=== PATIENT | male | born 1990 | race Caucasian/White ===

== ENCOUNTER 2017-05-07 01:30 | Emergency (ER) | payer OTHER ==
[~2017-05-07] VITALS: Wt 77.5 kg
[~2017-05-07 01:30] MED LIST: ERGO500014 PO; LORA-441 PO
[2017-05-07 01:35] VITALS: Wt 77.5 kg
[2017-05-07] MEDS ORDERED: ACETAMINOPHEN 325 MG TAB PO ONE (02:30)
--- NOTE | 2017-05-07 02:34 | RADRPT ---
PROCEDURE: CT BRAIN WITHOUT CONTRAST CLINICAL INDICATION: 26-year-old male with headaches. TECHNIQUE: The study was performed utilizing a GE An[employer]iva Systemspeed VCT 64-slice CT scanner. Direct axia l sections were obtained from the foramen magnum to the vertex without the use of intravenous contra st material. Sagittal and coronal reformations were obtained. One or more the following dose reduct ion techniques were utilized: automated exposure control, adjustment of the mA and/or kV according t o patient's size or use of iterative reconstruction technique. The images were viewed on a PACS [employer]. CTD/vol = 45.0 mGy; Total Exam DLP = 720.2 mGy-cm. COMPARISON: CT brain August 21, 2016; CT brain July 15, 2015. FINDINGS: There is again identified a focal right superior temporal encephalomalacia where the patient had a p rior hemorrhage. The ventricles have a normal size, shape and position. There is no evidence for m ass effect or midline shift. There is no evidence for acute intra or extra-axial blood. The bony ca lvarium is intact. The partially visualized paranasal sinuses and mastoid air cells are without sign ificant abnormal soft tissue. IMPRESSION: 1. There has been no marked interval change compared to the patient's prior CT scan from August [id number]. 2. Focal right superior temporal encephalomalacia corresponding to prior hemorrhage identified on t he patient's CT scan from July 15, 2015. .Luis Miguel Cristobal MD, Date Time Electronically viewed and signed by .Luis Miguel Cristobal MD, on 05/07/2017 02:34 .M/
[2017-05-07 03:49] VITALS: BP 125/70; PULSE 53; RESP 16
--- NOTE | 2017-05-07 04:22 | ERD ---
ER Documentation Chief Complaint Date/Time DATE: 05/07/17 TIME: 04:20 Chief Complaint FERGUSON started at 2200 after having argument with general supervisor, [facility] in 2014 HPI Patient is a 26-year-old male with a history of anxiety and previous intracranial hemorrhage who presents with a "migraine". The patient says that he has a history of intracranial hemorrhage in the past and that this headache feels similar to that headache. He said the pain comes and goes. It started after he had an argument with his boss at 10 PM. He has had no treatment as of yet. Upon review of old medical records this is the patient's fifth visit to the ER since 2014. He does not currently have a primary doctor. ROS All systems reviewed and are negative except as per history of present illness. Medications Home Meds Active Scripts Lorazepam* (Ativan*) 0.5 Mg Tablet, 0.5 MG PO Q8H Y for ANXIETY, #10 TAB Prov:MALI ROBLES 08/22/16 Lorazepam* (Ativan*) 0.5 Mg Tablet, 0.5 MG PO Q8H Y for ANXIETY, #20 TAB Prov:MALI ROBLES 12/16/15 Reported Medications Ergocalciferol* (Drisdol* (Vitamin D2)) 50,000 Unit Capsule, 86642 UNIT PO Q7D, CAP 12/16/15 Allergies Allergies: Coded Allergies: No Known Allergy (Unverified , 12/16/15) PMhx/Soc History of Surgery: Yes (JUL 2015 BRAIN SX) Anesthesia Reaction: No Hx Neurological Disorder: No Hx Respiratory Disorders: No Hx Cardiac Disorders: No (blood clot in leg) Hx Psychiatric Problems: No Hx Miscellaneous Medical Probl: No (JUL 2015 BRAIN BLEED, ADHD) Hx Alcohol Use: Yes (occ) Hx Substance Use: No Hx Tobacco Use: No Smoking Status: Never smoker FmHx Family History: diabetes Physical Exam Vitals Vital Signs Date Time Temp Pulse Resp B/P Pulse Ox O2 Delivery O2 Flow Rate FiO2 05/07/17 03:49 53 16 125/70 96 Room Air 05/07/17 01:35 97.1 76 20 134/81 97 Physical Exam Const: No acute distress Head: Atraumatic Eyes: Normal Conjunctiva ENT: Normal External Ears, Nose and Mouth. Neck: Full range of motion..~ No meningismus. Resp: Clear to auscultation bilaterally Cardio: Regular rate and rhythm, no murmurs Abd: Soft, non tender, non distended. Normal bowel sounds Skin: No petechiae or rashes Back: No midline or flank tenderness Ext: No cyanosis, or edema Neur: Awake and alert, Cranial nerves II through XII are intact, strength is 5 out of 5 in all 4 extremities, no slurred speech Psych: Normal Mood and Affect Results 24 hrs Current Medications Medications (Trade) Dose Ordered Sig/Steve Route PRN Reason Start Time Stop Time Status Last Admin Dose Admin Acetaminophen (Tylenol Tab) 650 mg ONCE ONCE PO 05/07/17 02:30 05/07/17 02:31 DC 05/07/17 02:14 Procedures/MDM CT brain shows no intrarenal hemorrhage or mass per radiology. Patient is a 26-year-old male with previous intracranial hemorrhage who presents with headache. Given that he said this feels similar to previous headache I did do a CT scan of the brain which was negative for bleed or mass. His neurologic exam is normal. I doubt subarachnoid hemorrhage. I do not think the patient requires a lumbar puncture. I believe outpatient management is appropriate but the patient will need close follow-up with a primary doctor at the local clinics for reevaluation. He can return sooner for any worsening symptoms. The patient understands the plan and is okay for discharge at this time. Departure Diagnosis: Primary Impression: Headache Headache type: unspecified Headache chronicity pattern: acute headache Intractability: not intractable Qualified Code: R51 - Acute nonintractable headache, unspecified headache type Condition: Fair Patient Instructions: Self-Care for Headaches Referrals: [facility] (PCP) Additional Instructions: Call your primary care doctor TOMORROW for an appointment during the next 1 WEEK.Tell the secretary board of commissioners that you were referred from this facility.See the doctor sooner or return here if your condition worsens before your appointment time. FILIBERTO GIMENEZ MD May 07, 2017 04:22
== END 2017-05-07 03:50 | disposition home or self-care (01) ==
LOC: E/R 01:30
DX: R51 Headache (principal)
CPT/HCPCS: 70450; Z7502; Z7610

== ENCOUNTER 2017-05-22 15:52 | Emergency (ER) | payer OTHER ==
[~2017-05-22] VITALS: Ht 167.6 cm; Wt 77.0 kg
[2017-05-22 16:12] VITALS: Ht 167.6 cm; Wt 77.0 kg
[2017-05-22] MEDS ORDERED: CETI10CA PO (17:01)
[2017-05-22] MEDS ORDERED: BEN25 PO (17:01)
[2017-05-22 17:13] VITALS: BP 122/70; PULSE 68; RESP 20; TEMP 98.2
--- NOTE | 2017-05-22 17:20 | ERD ---
ER Documentation Chief Complaint Date/Time DATE: 05/22/17 TIME: 17:18 Chief Complaint GENERALIZE BODY RASH X1 DAY HPI 26-year-old male comes in with a generalized rash that has been intermittent for the past 2 days. He states that it started after going to a baseball game. He denies any new foods, medications, lotions or creams. He states last week he had vomiting, nausea, diarrhea and abdominal pain has resolved. ROS All systems reviewed and are negative except as per history of present illness. Medications Home Meds Active Scripts Cetirizine Hcl* (Zyrtec*) 10 Mg Capsule, 10 MG PO DAILY, #20 TAB.CHEW Prov:WASHINGTON ARITA PA-C 05/22/17 Diphenhydramine Hcl* (Benadryl*) 25 Mg Cap, 25 MG PO Q6, #30 CAP Prov:WASHINGTON ARITA PA-C 05/22/17 Lorazepam* (Ativan*) 0.5 Mg Tablet, 0.5 MG PO Q8H Y for ANXIETY, #10 TAB Prov:MALI ROBLES 08/22/16 Lorazepam* (Ativan*) 0.5 Mg Tablet, 0.5 MG PO Q8H Y for ANXIETY, #20 TAB Prov:MALI ROBLES STommy 12/16/15 Reported Medications Ergocalciferol* (Drisdol* (Vitamin D2)) 50,000 Unit Capsule, 52529 UNIT PO Q7D, CAP 12/16/15 Allergies Allergies: Coded Allergies: No Known Allergy (Unverified , 12/16/15) PMhx/Soc History of Surgery: Yes (JUL 2015 BRAIN SX) Anesthesia Reaction: No Hx Neurological Disorder: No Hx Respiratory Disorders: No Hx Cardiac Disorders: No (blood clot in leg) Hx Psychiatric Problems: No Hx Miscellaneous Medical Probl: No (JUL 2015 BRAIN BLEED, ADHD) Hx Alcohol Use: No Hx Substance Use: No Hx Tobacco Use: No Physical Exam Vitals Vital Signs Date Time Temp Pulse Resp B/P Pulse Ox O2 Delivery O2 Flow Rate FiO2 05/22/17 17:13 98.2 68 20 122/70 98 Room Air 05/22/17 16:12 98.2 64 18 127/66 98 Physical Exam General: Well-developed, well-nourished. The patient appears in no acute distress. HEENT: Head is normocephalic, atraumatic. No scleral icterus. Neck: Supple. Nontender. Lungs: Clear to auscultation. Normal air movement. Heart: Regular rate and rhythm. S1 and S2 are normal. No murmurs, gallops, or rubs. Abdomen: Soft, nontender, nondistended. Bowel sounds are normoactive. Extremities: No clubbing or cyanosis. Normal pulses. Moving extremities x 4. No weakness. Neurologic: Alert and oriented 3. No focal deficits. Skin: Macular rash that is generalized, blanchable. No vesicles. Procedures/MDM 26-year-old male presents emergency department generalized rash, patient's symptoms are most consistent with a dermatitis nonspecific. Patient does not show any signs of anaphylaxis, respiratory condition with this, meningitis, encephalitis, Connor Oscar's, bleeding disorder. Patient reports that it started 2 days ago has been intermittent coming and going. He will be advised to take Benadryl as needed for symptom, as well as Zyrtec. Departure Diagnosis: Primary Impression: Rash Condition: Good Patient Instructions: Allergic Reaction, Other (General) WASHINGTON ARITA PA-C May 22, 2017 17:20
== END 2017-05-22 16:54 | disposition home or self-care (01) ==
LOC: FTE 15:52
DX: R21 Rash and other nonspecific skin eruption (principal)
CPT/HCPCS: 99283

== ENCOUNTER 2017-06-11 19:55 | Emergency (ER) | END 2017-06-11 21:56 | disposition home or self-care (01) | DX: R10.84 Generalized abdominal pain (principal); R11.10 Vomiting, unspecified | CPT/HCPCS: 36415; 74176; 80053; 81001; 83690; 85025; 96374; 96375; J1885; J2405; J7030; Z7502 ==

== ENCOUNTER 2017-06-15 21:20 | Emergency (ER) | payer OTHER ==
[~2017-06-15] VITALS: Ht 177.8 cm; Wt 75.0 kg
[~2017-06-15 21:20] MED LIST changes: +ACET325T33 PO; +BEN25 PO; +CETI10CA PO; +ONDA4TAB14 PO
[2017-06-15 21:26] VITALS: Ht 177.8 cm; Wt 75.0 kg
--- NOTE | 2017-06-15 23:58 | ERD ---
ER Documentation Chief Complaint Date/Time DATE: 06/15/17 TIME: 23:56 Chief Complaint lower abd pain x 3 days HPI 26-year-old male complaining of lower abdominal pain 3 days. The pain is sharp , comes and goes, worse when he is walking. Patient reports that he had not had a bowel movement for last 3 days. Feels nauseous, but had not did. He was seen here 4 days ago for similar abdominal pain and vomiting, and received CT scan. He was told that everything was normal, he probably had a viral illness. Denies fever or chills. ROS All systems reviewed and are negative except as per history of present illness. Medications Home Meds Active Scripts Acetaminophen* (Tylenol*) 325 Mg Tablet, 2 TAB PO Q6 Y for PAIN AND OR ELEVATED TEMP, #20 TAB Prov:JESSICA KILLIAN PA-C 06/11/17 Ondansetron (Ondansetron Odt) 4 Mg Tab.rapdis, 4 MG PO Q6H Y for NAUSEA AND/OR VOMITING, #10 TAB Prov:JESSICA KILLIAN PA-C 06/11/17 Cetirizine Hcl* (Zyrtec*) 10 Mg Capsule, 10 MG PO DAILY, #20 TAB.CHEW Prov:WASHINGTON ARITA PA-C 05/22/17 Diphenhydramine Hcl* (Benadryl*) 25 Mg Cap, 25 MG PO Q6, #30 CAP Prov:WASHINGTON ARITA PA-C 05/22/17 Lorazepam* (Ativan*) 0.5 Mg Tablet, 0.5 MG PO Q8H Y for ANXIETY, #10 TAB Prov:MALI ROBLES 08/22/16 Lorazepam* (Ativan*) 0.5 Mg Tablet, 0.5 MG PO Q8H Y for ANXIETY, #20 TAB Prov:MALI ROBLES 12/16/15 Reported Medications Ergocalciferol* (Drisdol* (Vitamin D2)) 50,000 Unit Capsule, 95104 UNIT PO Q7D, CAP 12/16/15 Allergies Allergies: Coded Allergies: No Known Allergy (Unverified , 06/11/17) PMhx/Soc History of Surgery: Yes (JUL 2015 BRAIN SX) Anesthesia Reaction: No Hx Neurological Disorder: No Hx Respiratory Disorders: No Hx Cardiac Disorders: No Hx Psychiatric Problems: No Hx Miscellaneous Medical Probl: No (JUL 2015 BRAIN BLEED, ADHD) Hx Alcohol Use: No Hx Substance Use: No Hx Tobacco Use: No Smoking Status: Never smoker Physical Exam Vitals Vital Signs Date Time Temp Pulse Resp B/P Pulse Ox O2 Delivery O2 Flow Rate FiO2 06/15/17 21:26 97.8 71 20 127/70 98 Physical Exam General: Well-developed, well-nourished, conscious and coherent, in no distress Skin: Warm and dry without rash, good texture and turgor Head: Normocephalic without evidence of trauma Eyes: Sclera and conjunctivae normal; pupils equal, round, and reactive to light; extraocular movements are intact Chest: Normal AP diameter. Good expansion without retractions. Nontender. Lungs are clear to auscultate bilaterally with good tidal volume Heart: Regular rate and rhythm. No murmur, rub, or gallops heard Abdomen: Soft, diffuse tenderness without masses, guarding, or rebound. Bowel sounds are active. No hepatosplenomegaly Back: Without spinal or CVA tenderness Pelvis: Nontender to palpation and stable to compression Extremities: Full range of motion. Good strength bilaterally. No clubbing, cyanosis, or edema. Peripheral pulses are intact. Sensation intact Neuro: Alert and oriented 4, GCS 15. Cranial nerves grossly intact. Motor and sensory exams nonfocal. Moves all extremities. Speech clear. Gait normal Results 24 hrs Laboratory Tests Test 06/16/17 00:11 Bedside Urine pH (LAB) 6.0 Bedside Urine Protein (LAB) Negative Bedside Urine Glucose (UA) Negative Bedside Urine Ketones (LAB) Negative Bedside Urine Blood Negative Bedside Urine Nitrite (LAB) Negative Bedside Urine Leukocyte Esterase (L Negative Current Medications Medications (Trade) Dose Ordered Sig/Steve Route PRN Reason Start Time Stop Time Status Last Admin Dose Admin Magnesium Citrate (Citroma) 300 ml ONCE ONCE PO 06/16/17 00:30 06/16/17 00:31 DC PROCEDURE: XR Abdomen. CLINICAL INDICATION: Constipation TECHNIQUE: AP abdomen x-ray. COMPARISON: CT and 06/11/2017 FINDINGS: The bowel gas pattern is normal. There is no evidence of free air or obstruction. There are no abnormal calcifications overlying the urinary tracts. The osseus structures are unremarkable. Mild fecal retention within the colon. Mild levoscoliosis of the lumbar spine. IMPRESSION: 1. No free air or obstruction. RPTAT:AAJJ Cash Dyson Physician Date Time Electronically viewed and signed by Cash Dyson Physician on 06/16/2017 00:56 ALLISON/ CC: EVELIO MORGAN CABLE TOOL OPERATOR Procedures/MDM Well-appearing 26-year-old male present ED with diffuse abdominal pain and constipation 3 days. KUB showed some stool retention in the colon, sign of bowel obstruction or free air. Suspicion for acute appendicitis, cholecystitis , pancreatitis. Magnesium citrate order for the patient in the ED. Patient refused and prefer prescription for outpatient treatment. Patient is advised to return to ED for 8 hour follow-up if his symptoms does not improve. Patient appears well, stable for discharge and outpatient management. Medical decision making shared with patient and family. Education provided to patient and family. Patient and family expressed understanding of the plan. Medications on discharge: Magnesium citrate. Follow-up: Return to ED for 8 hour follow-up.. Disclaimer: Inadvertent spelling and grammatical errors are likely due to EHR/ dictation software use and do not reflect on the overall quality of patient care. Also, please note that the electronic time recorded on this note does not necessarily reflect the actual time of the patient encounter. Departure Diagnosis: Primary Impression: Constipation Constipation type: slow transit constipation Qualified Code: K59.01 - Slow transit constipation Condition: Stable EVELIO MORGAN NP Jun 15, 2017 23:58
[2017-06-16 00:03] LABS: URINE BLOOD (Dip) POC Negative (NEGATIVE)
[2017-06-16] MEDS ORDERED: MAGNESIUM CITRATE 300 ML BTL PO ONE (00:30)
--- NOTE | 2017-06-16 00:56 | RADRPT ---
PROCEDURE: XR Abdomen. CLINICAL INDICATION: Constipation TECHNIQUE: AP abdomen x-ray. COMPARISON: CT and 06/11/2017 FINDINGS: The bowel gas pattern is normal. There is no evidence of free air or obstruction. There are no abnor mal calcifications overlying the urinary tracts. The osseus structures are unremarkable. Mild fecal retention within the colon. Mild levoscoliosis of the lumbar spine. IMPRESSION: 1. No free air or obstruction. RPTAT:AAJJ Physician Eliane Date Time Electronically viewed and signed by Physician Eliane on 06/16/2017 00:56 ALLISON/
[2017-06-16] MEDS ORDERED: MAGN296S40 PO (01:10)
== END 2017-06-16 01:21 | disposition home or self-care (01) ==
LOC: FTE 21:20
DX: K59.01 Slow transit constipation (principal)
CPT/HCPCS: 74000; 81003; Z7502

== ENCOUNTER 2017-07-10 22:28 | Emergency (ER) | payer OTHER ==
[~2017-07-10] VITALS: Ht 170.2 cm; Wt 77.0 kg
[~2017-07-10 22:28] MED LIST changes: +MAGN296S40 PO
[2017-07-10 22:43] VITALS: Ht 170.2 cm; Wt 77.0 kg
--- NOTE | 2017-07-10 23:19 | RADRPT ---
PROCEDURE: CT Head without. CLINICAL INDICATION: Headache. TECHNIQUE: The study was performed utilizing a multi-slice, multidetector CT scanner. Direct spira l 1 mm axial sections were obtained through the head without the use of intravenous contrast materia l. 1 or more of the following dose reduction techniques were utilized: Automated exposure control, adjustment of the mA and/or kV according to patient's size, iterative reconstruction technique. Co anil and sagittal reformations were obtained. The images were reviewed on a PACS workstation. RADIATION DOSE: CTDIvol: 43.1 mGyDLP: 823.90 mGy-cm COMPARISON: 05/07/2017, 08/21/2016 FINDINGS: There is no intracranial hemorrhage, extra-axial fluid collection, mass lesion, midline shift or hyd rocephalus. There is redemonstration of prominence of the right sylvian fissure due to encephalomal acia involving the superior right temporal lobe. On the remote prior examination, there was a hemorr mark in this region that congenitally resolved on the 05/07/2017 examination. The ventricles, sulci and cisterns are within normal limits. The white matter is unremarkable. The lancaster-white matter dif ferentiation is preserved. The basal cisterns are patent. The midline structures are intact. The orbits, calvarium and extracranial soft tissues are normal in appearance. The visualized paranasal s inuses, mastoid air cells and middle ear cavities are normally aerated. There is pneumatization of t he bilateral petrous apices without evidence of inflammatory changes, normal variant. IMPRESSION: 1. No significant interval change compared to 05/07/2017. No acute intracranial abnormality. No in tracranial hemorrhage, extra-axial fluid collection, mass lesion or hydrocephalous. 2. Stable encephalomalacia involving the right superior temporal lobe due to remote prior hemorrhag e with subsequent encephalomalacia. No areas of recurrent hemorrhage of visualized. RPTAT: HGAS .Julián Covington MD, Date Time Electronically viewed and signed by .Julián Covington MD, on 07/10/2017 23:18 .S/
--- NOTE | 2017-07-10 23:19 | RADRPT ---
PROCEDURE: XR Chest. CLINICAL INDICATION: Possible stroke. TECHNIQUE: AP view of the chest was obtained. COMPARISON: None available FINDINGS: The cardiomediastinal silhouette is within normal limits. The lungs are clear. No signs of pleural f luid or pneumothorax are seen. The osseous structures and soft tissues are unremarkable. IMPRESSION: 1. No evidence for active cardiopulmonary disease. RPTAT: HGAS .Julián Covington MD, MD Date Time Electronically viewed and signed by .Julián Covington MD, on 07/10/2017 23:18 .S/
[2017-07-10 23:23] LABS: BASOPHILS % 0.4 % (0.0-2.0); EOSINOPHILS # 0.1 10^3/ul (0.0-0.5); HEMATOCRIT 41.6 % (42.0-52.0); LYMPHOCYTES # 1.5 10^3/ul (0.8-2.9); LYMPHOCYTES % 21.9 % (15.0-51.0); MEAN CORPUSCULAR HGB CONC 33.7 g/dl (32.0-37.0); MEAN CORPUSCULAR VOLUME 89.1 fl (82.0-101.0); MEAN PLATELET VOLUME 9.5 fl (7.4-10.4); MONOCYTE # 0.9 10^3/ul (0.3-0.9); MONOCYTES % 12.4 % (0.0-11.0); NEUTROPHIL # 4.4 10^3/ul (1.6-7.5); PLATELET COUNT 252 10^3/UL (140-415); RED BLOOD COUNT 4.67 10^6/ul (4.70-6.10); RED CELL DISTRIBUTION WIDTH 12.7 % (11.5-14.5)
[2017-07-10 23:41] LABS: ALANINE AMINOTRANSFERASE 62 IU/L (13-69); ALBUMIN 4.3 g/dl (3.3-4.9); ALBUMIN/GLOBULIN RATIO 1.16; ALKALINE PHOSPHATASE 71 IU/L (42-121); ANION GAP 12 (8-16); ASPARTATE AMINO TRANSFERASE 34 IU/L (15-46); BILIRUBIN,INDIRECT 0.5 mg/dl (0-1.1); BILIRUBIN,TOTAL 0.5 mg/dl (0.2-1.3); BLOOD UREA NITROGEN 18 mg/dl (7-20); CALCIUM 10.2 mg/dl (8.4-10.2); CARBON DIOXIDE 31 mmol/L (21-31); CHLORIDE 101 mmol/L (97-110); CREATININE 1.24 mg/dl (0.61-1.24); GLUCOSE 82 mg/dl (70-220); INR 0.9; POTASSIUM 4.2 mmol/L (3.5-5.1); PROTIME 12.1 Sec (12.2-14.2); PT RATIO 0.9; SODIUM 140 mmol/L (135-144)
[2017-07-10 23:42] LABS: PARTIAL THROMBOPLASTIN TIME 33.1 Sec (25.0-35.0)
[2017-07-10 23:46] LABS: CANNABINOIDS Negative (NEGATIVE)
[2017-07-10 23:52] LABS: BARBITURATES Negative (NEGATIVE); BENZODIAZEPINES Negative (NEGATIVE); COCAINE Negative (NEGATIVE); OPIATES Negative (NEGATIVE)
[2017-07-10 23:58] LABS: TROPONIN-I < 0.012 ng/ml (0.00-0.12)
[2017-07-11 00:08] LABS: ADD UMIC YES; UR ASCORBIC ACID NEGATIVE (NEGATIVE); UR BILIRUBIN (Dip) NEGATIVE (NEGATIVE); UR BLOOD (Dip) 1+ mg/dL (NEGATIVE); UR CLARITY CLEAR (CLEAR); UR COLOR STRAW (YELLOW); UR GLUCOSE (Dip) NEGATIVE (NEGATIVE); UR KETONES (Dip) NEGATIVE (NEGATIVE); UR LEUKOCYTE ESTERASE (Dip) NEGATIVE Leu/ul (NEGATIVE); UR NITRITE (Dip) NEGATIVE (NEGATIVE); UR RBC 0 /HPF (0-5); UR SPECIFIC GRAVITY (Dip) 1.014 (1.003-1.030); UR TOTAL PROTEIN (Dip) NEGATIVE (NEGATIVE); UR UROBILINOGEN (Dip) NEGATIVE (NEGATIVE)
--- NOTE | 2017-07-11 02:05 | ERD ---
ER Documentation Chief Complaint Chief Complaint Lt side weakness x 30min [employer], but resolved. Hx TIA and brain bleed 2015 HPI This is a 26-year-old male, left-sided weakness 30 minutes prior to arrival with symptoms of since resolved. Patient has history of TIAs in the past along with subarachnoid hemorrhage. Said started all of a sudden. Had word finding difficulty along with numbness and weakness of the left side of his body mainly in his face. He said the resolve completely prior to arrival. No fevers no chills. No chest pain. No other current complaints. ROS All systems reviewed and are negative except as per history of present illness. Medications Home Meds Discontinued Reported Medications Ergocalciferol* (Drisdol* (Vitamin D2)) 50,000 Unit Capsule, 94244 UNIT PO Q7D, CAP 12/16/15 Discontinued Scripts Magnesium Citrate* (Magnesium Citrate*) 296 Ml Solution, 296 ML PO ONCE, #1 BOTTLE Prov:EVELIO MORGAN. BOBBIN SORTER 06/16/17 Acetaminophen* (Tylenol*) 325 Mg Tablet, 2 TAB PO Q6 Y for PAIN AND OR ELEVATED TEMP, #20 TAB Prov:JESSICA KILLIAN PA-C 06/11/17 Ondansetron (Ondansetron Odt) 4 Mg Tab.rapdis, 4 MG PO Q6H Y for NAUSEA AND/OR VOMITING, #10 TAB Prov:JESSICA KILLIAN PA-C 06/11/17 Cetirizine Hcl* (Zyrtec*) 10 Mg Capsule, 10 MG PO DAILY, #20 TAB.CHEW Prov:WASHINGTON ARITA PA-C 05/22/17 Diphenhydramine Hcl* (Benadryl*) 25 Mg Cap, 25 MG PO Q6, #30 CAP Prov:WASHINGTON ARITA PA-C 05/22/17 Lorazepam* (Ativan*) 0.5 Mg Tablet, 0.5 MG PO Q8H Y for ANXIETY, #10 TAB Prov:MALI ROBLES 08/22/16 Lorazepam* (Ativan*) 0.5 Mg Tablet, 0.5 MG PO Q8H Y for ANXIETY, #20 TAB Prov:MALI ROBLES 12/16/15 Allergies Allergies: Coded Allergies: No Known Allergy (Unverified , 06/11/17) PMhx/Soc History of Surgery: Yes (JUL 2015 BRAIN SX) Anesthesia Reaction: No Hx Neurological Disorder: No Hx Respiratory Disorders: No Hx Cardiac Disorders: No Hx Psychiatric Problems: No Hx Miscellaneous Medical Probl: No (JUL 2015 BRAIN BLEED, ADHD) Hx Alcohol Use: No Hx Substance Use: No Hx Tobacco Use: No Physical Exam Vitals Vital Signs Date Time Temp Pulse Resp B/P Pulse Ox O2 Delivery O2 Flow Rate FiO2 07/11/17 00:24 98.7 54 14 113/74 100 Room Air 07/10/17 22:43 98.4 58 18 148/51 100 Physical Exam Const: [] Head: Atraumatic Eyes: Normal Conjunctiva ENT: Normal External Ears, Nose and Mouth. Neck: Full range of motion..~ No meningismus. Resp: Clear to auscultation bilaterally Cardio: Regular rate and rhythm, no murmurs Abd: Soft, non tender, non distended. Normal bowel sounds Skin: No petechiae or rashes Back: No midline or flank tenderness Ext: No cyanosis, or edema Neur: Awake and alert Psych: Normal Mood and Affect Result Diagram: 07/10/17230607/10/172306 Results 24 hrs Laboratory Tests Test 07/10/17 23:07 07/10/17 23:17 07/10/17 23:20 White Blood Count 7.010^3/ul Red Blood Count 4.6710^6/ul Hemoglobin 14.0g/dl Hematocrit 41.6% Mean Corpuscular Volume 89.1fl Mean Corpuscular Hemoglobin 30.0pg Mean Corpuscular Hemoglobin Concent 33.7g/dl Red Cell Distribution Width 12.7% Platelet Count 00144^3/UL Mean Platelet Volume 9.5fl Neutrophils % 63.0% Lymphocytes % 21.9% Monocytes % 12.4% Eosinophils % 2.0% Basophils % 0.4% Nucleated Red Blood Cells % 0.0/100WBC Neutrophils # 4.410^3/ul Lymphocytes # 1.510^3/ul Monocytes # 0.910^3/ul Eosinophils # 0.110^3/ul Basophils # 0.010^3/ul Nucleated Red Blood Cells # 0.010^3/ul Prothrombin Time 12.1Sec Prothrombin Time Ratio 0.9 INR International Normalized Ratio 0.90 Activated Partial Thromboplast Time 33.1Sec Sodium Level 140mmol/L Potassium Level 4.2mmol/L Chloride Level 101mmol/L Carbon Dioxide Level 31mmol/L Anion Gap 12 Blood Urea Nitrogen 18mg/dl Creatinine 1.24mg/dl Glucose Level 82mg/dl Calcium Level 10.2mg/dl Total Bilirubin 0.5mg/dl Direct Bilirubin 0.00mg/dl Indirect Bilirubin 0.5mg/dl Aspartate Amino Transf (AST/SGOT) 34IU/L Alanine Aminotransferase (ALT/SGPT) 62IU/L Alkaline Phosphatase 71IU/L Troponin I < 0.012ng/ml Total Protein 8.0g/dl Albumin 4.3g/dl Globulin 3.70g/dl Albumin/Globulin Ratio 1.16 Bedside Glucose 82mg/dL Urine Color STRAW Urine Clarity CLEAR Urine pH 7.0 Urine Specific [place] 1.014 Urine Ketones NEGATIVEmg/dL Urine Nitrite NEGATIVEmg/dL Urine Bilirubin NEGATIVEmg/dL Urine Urobilinogen NEGATIVEmg/dL Urine Leukocyte Esterase NEGATIVELeu/ul Urine Microscopic RBC 0/HPF Urine Microscopic WBC 0/HPF Urine Hemoglobin 1+mg/dL Urine Glucose NEGATIVEmg/dL Urine Total Protein NEGATIVEmg/dl Urine Opiates Screen Negative Urine Barbiturates Negative Urine Amphetamines Screen Negative Urine Benzodiazepines Screen Negative Urine Cocaine Screen Negative Urine Cannabinoids Negative Procedures/MDM EKG: Rate/Rhythm: [Normal Sinus Rhythm] QRS, ST, T-waves: [No changes consistent w/ acute ischemia] Impression: [No evidence of ischemia or arrhythmia] Chest X-ray 1V Interpreted by me: Soft Tissue: No acute abnormalities Bones: No acute abnormalities Mediastinum/Cardiac Silhouette/Lungs: [No acute abnormalities] Medical decision: 26 year old male with TIA. Patient will be admitted for neurological workup Critical Care: Time: 45 minutes Treatments/Evaluations: Close monitoring and treatment of unstable vital signs, cardiorespiratory, and neurologic status, while maintaining tight balance of fluid, respiratory, and cardiac interventions. Departure Diagnosis: Primary Impression: Acute weakness Condition: Serious MALI ROBLESTommy Jul 11, 2017 02:05
[2017-07-11] MEDS ORDERED: ACETAMINOPHEN 325 MG TAB PO PRN (02:30)
[2017-07-11] MEDS ORDERED: NACL 0.9% 3 ML SYG IV SCH (02:30)
[2017-07-11] MEDS ORDERED: ONDANSETRON 4 MG INJ IV PRN (02:30)
[2017-07-11 04:58] VITALS: BP 107/73; PULSE 63; RESP 18; TEMP 98.6
--- NOTE | 2017-07-11 06:33 | HP ---
Date/Time of Note Date/Time of Note DATE: 07/11/17 TIME: 06:20 Assessment/Plan VTE Prophylaxis VTE Prophylaxis Intervention: SCD's Lines/Catheters IV Catheter Type [facility]from [facility] Saline Lock Assessment/Plan Chief Complaint/Hosp Course This is a 26-year-old male being admitted to the telemetry floor for: #1 left-sided weakness: Possibly secondary to complex migraine versus TIA versus other neurological etiology. Patient also had symptoms of aphasia and weakness. All his symptoms has resolved at this point and patient is returned to baseline as per him and on based on his clinical exam. Based on his prior history of a intracranial hemorrhage at the current time I would like to further evaluate by ordering an MRI of the brain. Will also order MRI of the cervical spine. We will also attempt to search for any signs of any possible MS. Will consult neurology. Neurochecks every 4 hours. Will check hemoglobin A1c thyroid panel lipid panel. CT scan of the brain does not show any acute intracranial pathology, though does show a stable encephalomalacia likely result of his previous intracranial hemorrhage. #2 History of intracranial hemorrhage: Patient had a previous history of atrial hemorrhage that was thought possibly likely to be secondary to AV malformation. He does have some residual stable encephalomalacia on the CT scan. Again neurology will be consulted. #3 DVT and GI prolapses: Prophylaxis: SCDs, acid lobo Further treatment strategy will be implemented as per the clinical course Problems: HPI/ROS Admit Date/Time Admit Date/Time Hx of Present Illness Chief complaint: Left-sided weakness, aphasia, This is a 26-year-old male, left-sided weakness 30 minutes prior to arrival with symptoms of since resolved. Patient has history of TIAs in the past along with subarachnoid hemorrhage. Said started all of a sudden. Had word finding difficulty along with numbness and weakness of the left side of his body mainly in his face. Patient also did report a headache.. He said the resolve completely prior to arrival. No fevers no chills. No chest pain. No other current complaints. Allergies: NKDA Medications: None ROS Const: As per HPI Eyes : No pain discharge or redness or change in visual acuity ENT: No pain, sore throat, congestion, congestion, dysphagia or discharge Respiratory: No shortness of breath, cough, sputum, wheezing, or pleuritic pain Cardiovascular: No chest pain, palpitation, PND, or edema GI : no change in appetite, abdominal pain, nausea, vomiting, diarrhea, constipation, or change in the color his stool Genitourinary: No dysuria, hematuria, flank pain , discharge or CVA tenderness Musculoskeletal: No joint pain, back pain, neck pain, restricted range of motion in neck or joints Skin: No rash, bruising or hives Neuro: As per HPI Endocrine: No polyuria, polydipsia, temperature intolerance Psych: No hallucination, depression, anxiety or suicidal ideation PMH/Family/Social Past Medical History Previous subarachnoid hemorrhage possibly from AV malformation Past Surgical History Past Surgical Hx: no surgical history Family History Significant Family History: diabetes Social History Alcohol Use: none Smoking Status: Never smoker Drug Use: none Exam/Review of Systems Vital Signs Vitals Vital Signs Date Time Temp Pulse Resp B/P Pulse Ox O2 Delivery O2 Flow Rate FiO2 07/11/17 04:58 98.6 63 18 107/73 97 Room Air Exam Exam General: Patient is lying in bed comfortably in no acute distress. HEENT: Atraumatic, normocephalic. The pupils are equal, round and reactive. Extraocular motor are intact Neck: Supple with full range of motion. No rigidity or meningismus Chest: Nontender Lungs: Clear to auscultation bilaterally no crackles rales or wheezing Heart: Normal S1-S2, Regular rhythm and rate. No murmur, S3, or S4 Abdomen: Soft , nontender, nondistended , bowel sounds are present. No guarding no rebound tenderness , No masses or organomegaly. No costovertebral temporal angle mass Extremities: Normal to inspection, no edema no cyanosis Neurologic: Normal mental status, speech normal, cranial nerves II through XII are intact, motor and sensory are intact, no focal weakness, strength equal in bilateral and both upper and lower extremities. Additional Comments PROCEDURE: CT Head without. CLINICAL INDICATION: Headache. TECHNIQUE: The study was performed utilizing a multi-slice, multidetector CT scanner. Direct spiral 1 mm axial sections were obtained through the head without the use of intravenous contrast material. 1 or more of the following dose reduction techniques were utilized: Automated exposure control, adjustment of the mA and/or kV according to patient's size, iterative reconstruction technique. Coronal and sagittal reformations were obtained. The images were reviewed on a PACS workstation. RADIATION DOSE: CTDIvol: 43.1 mGy DLP: 823.90 mGy-cm COMPARISON: 05/07/2017, 08/21/2016 FINDINGS: There is no intracranial hemorrhage, extra-axial fluid collection, mass lesion, midline shift or hydrocephalus. There is redemonstration of prominence of the right sylvian fissure due to encephalomalacia involving the superior right temporal lobe. On the remote prior examination, there was a hemorrhage in this region that congenitally resolved on the 05/07/2017 examination. The ventricles , sulci and cisterns are within normal limits. The white matter is unremarkable. The lancaster-white matter differentiation is preserved. The basal cisterns are patent. The midline structures are intact. The orbits, calvarium and extracranial soft tissues are normal in appearance. The visualized paranasal sinuses, mastoid air cells and middle ear cavities are normally aerated. There is pneumatization of the bilateral petrous apices without evidence of inflammatory changes, normal variant. IMPRESSION: 1. No significant interval change compared to 05/07/2017. No acute intracranial abnormality. No intracranial hemorrhage, extra-axial fluid collection, mass lesion or hydrocephalous. 2. Stable encephalomalacia involving the right superior temporal lobe due to remote prior hemorrhage with subsequent encephalomalacia. No areas of recurrent hemorrhage of visualized. RPTAT: HGAS .Julián Covington MD, Date Time Electronically viewed and signed by .Julián Covington MD, on 07/10/2017 23: 18 .S/ CC: MALI ROBLES Labs Result Diagram: 07/10/17230607/10/[id number] IMMANUEL WHEELER Jul 11, 2017 06:31
--- NOTE | 2017-07-11 06:38 | DS ---
Date/Time of Note Date/Time of Note DATE: 07/11/17 TIME: 06:34 Discharge Summary Admission/Discharge Info Admit Date/Time 07/11/2017 Discharge Date/Time Patient left AGAINST MEDICAL ADVICE, AMA Discharge Diagnosis Patient left AGAINST MEDICAL ADVICE,AMA Patient Condition: Serious Hx of Present Illness Chief complaint: Left-sided weakness, aphasia, This is a 26-year-old male, left-sided weakness 30 minutes prior to arrival with symptoms of since resolved. Patient has history of TIAs in the past along with subarachnoid hemorrhage. Said started all of a sudden. Had word finding difficulty along with numbness and weakness of the left side of his body mainly in his face. Patient also did report a headache.. He said the resolve completely prior to arrival. No fevers no chills. No chest pain. No other current complaints. Allergies: NKDA Medications: None Hospital Course This is a 26-year-old male being admitted to the telemetry floor for: #1 left-sided weakness: Possibly secondary to complex migraine versus TIA versus other neurological etiology. Patient also had symptoms of aphasia and weakness. All his symptoms has resolved at this point and patient is returned to baseline as per him and on based on his clinical exam. Based on his prior history of a intracranial hemorrhage at the current time I would like to further evaluate by ordering an MRI of the brain. Will also order MRI of the cervical spine. We will also attempt to search for any signs of any possible MS. Will consult neurology. Neurochecks every 4 hours. Will check hemoglobin A1c thyroid panel lipid panel. CT scan of the brain does not show any acute intracranial pathology, though does show a stable encephalomalacia likely result of his previous intracranial hemorrhage. #2 History of intracranial hemorrhage: Patient had a previous history of atrial hemorrhage that was thought possibly likely to be secondary to AV malformation. He does have some residual stable encephalomalacia on the CT scan. Again neurology will be consulted. #3 DVT and GI prolapses: Prophylaxis: SCDs, acid lobo I was later notified by the ER that the patient decided to leave AGAINST MEDICAL ADVICE. I was unable to see the patient and discuss why he wanted to leave with him as the patient had left AMA, AGAINST MEDICAL ADVICE. Home Meds Discontinued Reported Medications Ergocalciferol* (Drisdol* (Vitamin D2)) 50,000 Unit Capsule, [address]23 UNIT PO Q7D, CAP 12/16/15 Discontinued Scripts Magnesium Citrate* (Magnesium Citrate*) 296 Ml Solution, 296 ML PO ONCE, #1 BOTTLE Prov:EVELIO MORGAN NP 06/16/17 Acetaminophen* (Tylenol*) 325 Mg Tablet, 2 TAB PO Q6 Y for PAIN AND OR ELEVATED TEMP, #20 TAB Prov:JESSICA KILLIAN PA-C 06/11/17 Ondansetron (Ondansetron Odt) 4 Mg Tab.rapdis, 4 MG PO Q6H Y for NAUSEA AND/OR VOMITING, #10 TAB Prov:JESSICA KILLIAN PA-C 06/11/17 Cetirizine Hcl* (Zyrtec*) 10 Mg Capsule, 10 MG PO DAILY, #20 TAB.CHEW Prov:WASHINGTON ARITA PA-C 05/22/17 Diphenhydramine Hcl* (Benadryl*) 25 Mg Cap, 25 MG PO Q6, #30 CAP Prov:WASHINGTON ARITA PA-C 05/22/17 Lorazepam* (Ativan*) 0.5 Mg Tablet, 0.5 MG PO Q8H Y for ANXIETY, #10 TAB Prov:MALI ROBLES 08/22/16 Lorazepam* (Ativan*) 0.5 Mg Tablet, 0.5 MG PO Q8H Y for ANXIETY, #20 TAB Prov:MALI ROBLES S. 12/16/15 Follow-up Plan Patient left AGAINST MEDICAL ADVICE,AMA Primary Care Provider [facility] Time spent on discharge: Patient left AGAINST MEDICAL ADVICE,AMA Pending Labs Laboratory Tests Test 07/10/17 23:00 07/10/17 23:07 07/10/17 23:17 07/10/17 23:20 Hemoglobin A1c 5.3% (0-5.9) White Blood Count 7.010^3/ul (4.8-10.8) Red Blood Count 4.6710^6/ul (4.70-6.10) Hemoglobin 14.0g/dl (14.0-18.0) Hematocrit 41.6% (42.0-52.0) Mean Corpuscular Volume 89.1fl (82.0-101.0) Mean Corpuscular Hemoglobin 30.0pg (29.0-33.0) Mean Corpuscular Hemoglobin Concent 33.7g/dl (32.0-37.0) Red Cell Distribution Width 12.7% (11.5-14.5) Platelet Count 84444^3/UL (140-415) Mean Platelet Volume 9.5fl (7.4-10.4) Neutrophils % 63.0% (39.0-77.0) Lymphocytes % 21.9% (15.0-51.0) Monocytes % 12.4% (0.0-11.0) Eosinophils % 2.0% (0.0-7.0) Basophils % 0.4% (0.0-2.0) Nucleated Red Blood Cells % 0.0/100WBC (0.0-0.0) Neutrophils # 4.410^3/ul (1.6-7.5) Lymphocytes # 1.510^3/ul (0.8-2.9) Monocytes # 0.910^3/ul (0.3-0.9) Eosinophils # 0.110^3/ul (0.0-0.5) Basophils # 0.010^3/ul (0.0-0.1) Nucleated Red Blood Cells # 0.010^3/ul (0.0-0.0) Prothrombin Time 12.1Sec (12.2-14.2) Prothrombin Time Ratio 0.9 INR International Normalized Ratio 0.90 Activated Partial Thromboplast Time 33.1Sec (25.0-35.0) Sodium Level 140mmol/L (135-144) Potassium Level 4.2mmol/L (3.5-5.1) Chloride Level 101mmol/L (97-110) Carbon Dioxide Level 31mmol/L (21-31) Anion Gap 12 (8-16) Blood Urea Nitrogen 18mg/dl (7-20) Creatinine 1.24mg/dl (0.61-1.24) Glucose Level 82mg/dl (70-220) Calcium Level 10.2mg/dl (8.4-10.2) Total Bilirubin 0.5mg/dl (0.2-1.3) Direct Bilirubin 0.00mg/dl (0.00-0.20) Indirect Bilirubin 0.5mg/dl (0-1.1) Aspartate Amino Transf (AST/SGOT) 34IU/L (15-46) Alanine Aminotransferase (ALT/SGPT) 62IU/L (13-69) Alkaline Phosphatase 71IU/L (42-121) Troponin I < 0.012ng/ml (0.00-0.12) Total Protein 8.0g/dl (6.1-8.1) Albumin 4.3g/dl (3.3-4.9) Globulin 3.70g/dl (1.3-3.2) Albumin/Globulin Ratio 1.16 Bedside Glucose 82mg/dL (70-220) Urine Color STRAW (YELLOW) Urine Clarity CLEAR (CLEAR) Urine pH 7.0 (5.0-9.0) Urine Specific [place] 1.014 (1.003-1.030) Urine Ketones NEGATIVEmg/dL (NEGATIVE) Urine Nitrite NEGATIVEmg/dL (NEGATIVE) Urine Bilirubin NEGATIVEmg/dL (NEGATIVE) Urine Urobilinogen NEGATIVEmg/dL (NEGATIVE) Urine Leukocyte Esterase NEGATIVELeu/ul (NEGATIVE) Urine Microscopic RBC 0/HPF (0-5) Urine Microscopic WBC 0/HPF (0-5) Urine Hemoglobin 1+mg/dL (NEGATIVE) Urine Glucose NEGATIVEmg/dL (NEGATIVE) Urine Total Protein NEGATIVEmg/dl (NEGATIVE) Urine Opiates Screen Negative (NEGATIVE) Urine Barbiturates Negative (NEGATIVE) Urine Amphetamines Screen Negative (NEGATIVE) Urine Benzodiazepines Screen Negative (NEGATIVE) Urine Cocaine Screen Negative (NEGATIVE) Urine Cannabinoids Negative (NEGATIVE) IMMANUEL WHEELER Jul 11, 2017 06:38
[2017-07-11] MEDS ORDERED: FAMOTIDINE 20 MG TAB PO SCH (09:00)
== END 2017-07-11 05:03 | disposition left against medical advice (07) ==
LOC: E/R 22:28
DX: R53.1 Weakness (principal); R40.2252 Coma scale, best verbal response, oriented, at arrival to emergency department; R07.9 Chest pain, unspecified; R40.2142 Coma scale, eyes open, spontaneous, at arrival to emergency department; R40.2362 Coma scale, best motor response, obeys commands, at arrival to emergency department; R51 Headache
CPT/HCPCS: 36415; 70450; 71010; 80053; 80307; 81001; 82962; 83036; 84484; 85025; 85610; 85730; 93005; Z7502

== ENCOUNTER 2018-01-21 15:57 | Emergency (ER) | END 2018-01-21 17:48 | disposition home or self-care (01) ==

== ENCOUNTER 2019-04-07 22:13 | Emergency (ER) | payer OTHER ==
[~2019-04-07] VITALS: Ht 170.2 cm; Wt 77.2 kg
[2019-04-07 22:15] VITALS: BP 118/66; PULSE 75; RESP 18; Ht 170.2 cm; Wt 77.2 kg
--- NOTE | 2019-04-07 23:25 | ERD ---
ER Documentation Chief Complaint Chief Complaint wants to be checked for std. denies any symptom HPI 28-year-old male presents for STD testing. States that his girlfriend had chlamydia and he wants to be tested as well. States that he would like to be treated regardless of what the results are. Patient denies any dysuria, hematuria, penile discharge, testicular pain, genital pain, fevers, chills, or any other symptoms. ROS All systems reviewed and are negative except as per history of present illness. Medications Home Meds No Active Prescriptions or Reported Meds Allergies Allergies: Coded Allergies: No Known Allergy (Unverified , 01/21/18) PMhx/Soc History of Surgery: Yes (JUL 2015 BRAIN SX) Anesthesia Reaction: No Hx Neurological Disorder: No Hx Respiratory Disorders: No Hx Cardiac Disorders: No Hx Psychiatric Problems: No Hx Miscellaneous Medical Probl: No (JUL 2015 BRAIN BLEED, ADHD) Hx Alcohol Use: No Hx Substance Use: No Hx Tobacco Use: No FmHx Family History: No diabetes, No coronary disease, No other Physical Exam Vitals Vital Signs Date Temp Pulse Resp B/P (MAP) Pulse Ox O2 O2 Flow FiO2 Time Delivery Rate 04/07/19 97.4 75 18 118/66 97 22:15 (83) Physical Exam Const: No acute distress Head: Atraumatic Eyes: Normal Conjunctiva ENT: Normal External Ears, Nose and Mouth. Neck: Full range of motion. No meningismus. Resp: Clear to auscultation bilaterally Cardio: Regular rate and rhythm, no murmurs Abd: Soft, non tender, non distended. Normal bowel sounds Skin: No petechiae or rashes Back: No midline or flank tenderness Ext: No cyanosis, or edema Neur: Awake and alert Psych: Normal Mood and Affect Results 24 hrs Current Medications Medications Dose Sig/Steve Start Time Status Last (Trade) Ordered Route PRN Stop Time Admin Dose Reason Admin Ceftriaxone 250 mg ONCE ONCE 04/07/19 Sodium IM 23:30 (Rocephin) 04/07/19 23:31 Lidocaine 5 ml ONCE ONCE 04/07/19 (Xylocaine INJ 23:30 1% (Mpf)) 04/07/19 23:31 1,000 mg ONCE ONCE 04/07/19 Azithromycin PO 23:30 (Zithromax) 04/07/19 23:31 Procedures/MDM MDM: Patient denies any symptoms whatsoever and states he just wants to be tested and treated regardless of the results therefore exam was unnecessary. Patient was given 250 mg of ceftriaxone and 1000 mg azithromycin. I have low suspicion for pyelonephritis, nephrolithiasis, appendicitis, epididymitis, urethritis, orchitis, balanitis, prostatitis, phimosis, priapism, penile contusion, incarcerated hernia or strangulated hernia, or any emergent condition. At this time, patient is stable for discharge and outpatient management. I have instructed the patient to follow-up with his/her primary care physician in 1-2 days. I have discussed with the patient the possibility of needing to see a specialist for further workup and imaging studies if symptoms persist. I have instructed the patient to promptly return to the ER for any new or worsening symptoms including but not limited to increased pain, fever, nausea, vomiting, weakness or LOC. The patient and/or family expressed understanding of and agreement with this plan. All questions were answered. Home care instructions were provided. DISCLAIMER: Inadvertent spelling and grammatical errors are likely due to EHR/dictation software use and do not reflect on the overall quality of patient care. Also, please note that the electronic time recorded on this note does not necessarily reflect the actual time of the patient encounter. Departure Diagnosis: Primary Impression: Screening for STD (sexually transmitted disease) Condition: Stable Patient Instructions: What Are Sexually Transmitted Diseases (STDs)?, Understanding STDs, If You Think You Have an STD Additional Instructions: FOLLOW UP WITH YOUR PRIMARY CARE PHYSICIAN TOMORROW.Return to this facility if you are not improving as expected. You can call the hospital 3 days for the re sults of your STD test. MALI TRUONG Apr 07, 2019 23:25
[2019-04-07] MEDS ORDERED: AZITHROMYCIN 500 MG TAB PO ONE (23:30)
[2019-04-07] MEDS ORDERED: LIDOCAINE 1% (MPF) 5 ML VIAL INJ ONE (23:30)
[2019-04-07] MEDS ORDERED: CEFTRIAXONE 250 MG INJ IM ONE (23:30)
== END 2019-04-07 23:46 | disposition home or self-care (01) ==
LOC: FTE 22:13
DX: Z11.3 Encounter for screening for infections with a predominantly sexual mode of transmission (principal)
CPT/HCPCS: 87591; 96372; 99284; J0696